=== PATIENT | male | born 1995 | race Caucasian/White ===

== ENCOUNTER 2017-09-20 17:20 | Emergency (ER) | payer BC ==
--- NOTE | 2017-09-20 17:43 | EDPHY ---
H & P Time Seen by Provider: 09/20/17 17:32 HPI/ROS: CHIEF COMPLAINT: Right knee injury HISTORY OF PRESENT ILLNESS: 11:30 a.m. Was skiing at [facility] and fell and his ski caught in the snow and twisted it. Presents with pain in his right knee which feels a little bit unstable with walking but no weakness or numbness in the foot and no skin laceration. REVIEW OF SYSTEMS: No hip or ankle symptoms PAST MEDICAL HISTORY: Negative Social history: Nonsmoker General Appearance: Alert and conversant, cooperative. Patient has some swelling around the knee and patella. No joint line tenderness and no bony tenderness including the patella. Stable to varus and valgus stress and anterior and posterior drawer. Sabina test negative for instability. Normal distal motor sensory and vascular function. Emergency Department course/MDM: X-ray of the right knee performed. Patient warned he may have internal injuries such as ACL, although does not have signs of instability on exam now. 1757: Knee x-ray shows joint effusion otherwise negative. Knee immobilizer and mandatory orthopedic follow-up for comprehensive exam later this week. Results discussed and reviewed with the patient. He is going back to [place] this weekend wants to see an orthopedic surgeon back where his family resides. Warned follow-up is mandatory, will bring x-rays with him. Smoking Status: Never smoked Constitutional: Initial Vital Signs Temperature (C) 36.7 C 09/20/17 17:27 Heart Rate 92 09/20/17 17:27 Respiratory Rate 16 09/20/17 17:27 Blood Pressure 128/69 H 09/20/17 17:27 O2 Sat (%) 96 09/20/17 17:27 O2 Delivery Mode Room Air Allergies/Adverse Reactions: No Known Allergies Allergy (Unverified 09/20/17 17:26) Home Medications: Medication Instructions Recorded NK [No Known Home Meds] 09/20/17 MDM/Departure - MDM Imaging Results: Imaging Impressions Knee X-Ray 09/20/17 17:41 Impression: No acute osseous findings. Imaging: I viewed and interpreted images myself - Depart Disposition: Home, Routine, Self-Care Clinical Impression: Right knee injury Qualifiers: Encounter type: initial encounter Qualified Code(s): S89.91XA - Unspecified injury of right lower leg, initial encounter Condition: Good Instructions: Knee Immobilizer (ED) Additional Instructions: Limited walking on the right knee, keep it elevated, compression Quincy wrap. It is possible that you have an internal injuries such as an ACL but could not be definitively diagnosed in the emergency department. If you're going to [place] please see an orthopedic surgeon there early next week, for a comprehensive examination. Bring the computer disc with your x -rays onto the appointment. Stand Alone Forms: Work Excuse Referrals: Anderson Champagne MD [Medical Doctor] - As per Instructions (Please follow-up with Orthopedics later in the week in the office for comprehensive examination.)
[2017-09-20 18:11] VITALS: BP 125/78
== END 2017-09-20 18:16 | disposition home or self-care (01) ==
DX: S89.91XA Unspecified injury of right lower leg, initial encounter (principal); V00.321A Fall from snow-skis, initial encounter; Y92.89 Other specified places as the place of occurrence of the external cause; Y99.8 Other external cause status; Y93.23 Activity, snow (alpine) (downhill) skiing, snowboarding, sledding, tobogganing and snow tubing
CPT/HCPCS: L1830

== ENCOUNTER 2018-09-20 12:46 | Emergency (ER) | payer BC, OTHER ==
[2018-09-20 13:05] VITALS: BP 130/83
--- NOTE | 2018-09-20 13:22 | EDPHY ---
H & P Stated Complaint: left heel pain Time Seen by Provider: 09/20/18 13:21 HPI/ROS: CHIEF COMPLAINT: Left calcaneal pain HISTORY OF PRESENT ILLNESS: The patient presents the ED with 2 days of left calcaneal pain. The patient injured himself jumping off a 6 ft wall. He has had pain in the left calcaneus with ambulation since that time. The patient denies any associated pain in his ankle, foot, knee hip or back. He denies any acute numbness or weakness. He has moderate pain with movement. REVIEW OF SYSTEMS: A comprehensive 10 point review of systems is otherwise negative aside from elements mentioned in the history of present illness. Source: Patient Exam Limitations: No limitations - Personal History Current Tetanus Diphtheria and Acellular Pertussis (TDAP): Yes - Medical/Surgical History Hx Asthma: No Hx Chronic Respiratory Disease: No Hx Diabetes: No Hx Cardiac Disease: No Hx Renal Disease: No Hx Cirrhosis: No Hx Alcoholism: No Hx HIV/AIDS: No Hx Splenectomy or Spleen Trauma: No Other PMH: denies - Social History Smoking Status: Never smoked - Physical Exam Exam: General Appearance: Alert, no distress Skin: No lacerations, No abrasion Back: No midline T/L/S pain Extremities: Tenderness to palpation left calcaneus, no overlying laceration, hematoma or abrasion. Remainder of the extremity exam is unremarkable. Constitutional: Initial Vital Signs Heart Rate 90 09/20/18 13:03 Respiratory Rate 16 09/20/18 13:03 Blood Pressure 130/83 H 09/20/18 13:03 O2 Sat (%) 96 09/20/18 13:03 O2 Delivery Mode Room Air Allergies/Adverse Reactions: No Known Allergies Allergy (Unverified 09/20/17 17:26) Home Medications: Medication Instructions Recorded NK [No Known Home Meds] 09/20/17 Medical Decision Making - Diagnostics Imaging Results: Imaging Impressions Calcaneus X-Ray 09/20/18 13:24 Impression: Good alignment. No acute fracture. ED Course/Re-evaluation: Patient presents the ED with complaints of left heel pain following a fall. The patient has no evidence of an obvious fracture noted on the x-ray today. The patient will be placed in a Romero boot. He is advised to weight bear as tolerated. The patient should follow up with our on-call orthopedic surgeon for any persistent pain as this may be the sign of an injury not noted on the x- ray today. Departure - Departure Disposition: Home, Routine, Self-Care Clinical Impression: Foot injury Qualifiers: Encounter type: initial encounter Laterality: left Qualified Code(s): S99.922A - Unspecified injury of left foot, initial encounter Condition: Good Instructions: Foot Sprain (ED) Additional Instructions: 1. Wear Romero boot and use crutches as needed. Weight bear as tolerated. 2. Your x-ray today demonstrates no evidence of an obvious fracture. 3. Please follow up with the orthopedic surgeon you have been referred to for any painful weight-bearing which persists past 5-7 days as this may be the sign of an injury not detected on the x-rays today. Referrals: Tomas Soto MD [Medical Doctor] - As per Instructions
== END 2018-09-20 14:46 | disposition home or self-care (01) ==
DX: S99.922A Unspecified injury of left foot, initial encounter (principal); Y30.XXXA Falling, jumping or pushed from a high place, undetermined intent, initial encounter
CPT/HCPCS: L4386